=== PATIENT | female | born 1965 | race Caucasian/White ===

== ENCOUNTER → 2020-06-12 11:13 | Outpatient (BNVA) | payer MEDICAID, SELFPAY | PROVIDERS: Family Provider Nurse Practitioner Family; Visit Provider Family Medicine | DX: I10 Essential (primary) hypertension (principal); E78.5 Hyperlipidemia, unspecified; E55.9 Vitamin D deficiency, unspecified; F32.9 Major depressive disorder, single episode, unspecified; F41.9 Anxiety disorder, unspecified; F41.1 Generalized anxiety disorder; J01.00 Acute maxillary sinusitis, unspecified; H66.91 Otitis media, unspecified, right ear; E78.2 Mixed hyperlipidemia | CPT/HCPCS: 80053; 80061; 82306; 85025 ==

== ENCOUNTER → 2020-10-19 09:13 | Outpatient (BNVA) | payer MEDICAID, SELFPAY | PROVIDERS: Family Provider Nurse Practitioner Family; Visit Provider Family Medicine | DX: F41.1 Generalized anxiety disorder (principal); E78.2 Mixed hyperlipidemia; I10 Essential (primary) hypertension | CPT/HCPCS: 80053; 80061; 84443; 85025 ==

== ENCOUNTER → 2020-12-31 13:43 | Outpatient (BNVA) | payer MEDICAID, SELFPAY | PROVIDERS: Family Provider Nurse Practitioner Family | DX: M25.562 Pain in left knee (principal); S83.90XA Sprain of unspecified site of unspecified knee, initial encounter | CPT/HCPCS: 73562 ==

== ENCOUNTER → 2021-04-14 15:47 | Outpatient (BNVA) | payer MEDICAID, SELFPAY | PROVIDERS: Family Provider Nurse Practitioner Family; PCP Family Medicine; Visit Provider Family Medicine | DX: F41.1 Generalized anxiety disorder (principal); E55.9 Vitamin D deficiency, unspecified; E78.2 Mixed hyperlipidemia; I10 Essential (primary) hypertension | CPT/HCPCS: 80053; 80061; 82306; 84443; 85025 ==

== ENCOUNTER → 2021-09-07 14:44 | Outpatient (BNVA) | payer MEDICAID, SELFPAY | PROVIDERS: Family Provider Nurse Practitioner Family; PCP Family Medicine; Visit Provider Family Medicine | DX: F41.1 Generalized anxiety disorder (principal); I10 Essential (primary) hypertension; F32.9 Major depressive disorder, single episode, unspecified; E55.9 Vitamin D deficiency, unspecified | CPT/HCPCS: 80053; 80061; 84443; 85025 ==

== ENCOUNTER → 2021-11-29 09:39 | Outpatient (BNVA) | payer MEDICAID, SELFPAY | PROVIDERS: Family Provider Nurse Practitioner Family; PCP Family Medicine; Visit Provider Nurse Practitioner Family | DX: Z20.822 Contact with and (suspected) exposure to COVID-19 (principal) | CPT/HCPCS: 87635 ==

== ENCOUNTER → 2022-08-10 15:00 | Outpatient (BNVA) | payer MEDICAID, SELFPAY | PROVIDERS: Family Provider Nurse Practitioner Family; PCP Family Medicine; Visit Provider Family Medicine | DX: F41.1 Generalized anxiety disorder (principal); F41.9 Anxiety disorder, unspecified; F32.9 Major depressive disorder, single episode, unspecified; E55.9 Vitamin D deficiency, unspecified; E78.2 Mixed hyperlipidemia; I10 Essential (primary) hypertension | CPT/HCPCS: 80053; 80061; 82306; 84443; 85025 ==

== ENCOUNTER → 2022-12-20 09:58 | Outpatient (BNVA) | payer MEDICAID, SELFPAY | PROVIDERS: Family Provider Nurse Practitioner Family; PCP Family Medicine; Visit Provider Family Medicine | DX: E55.9 Vitamin D deficiency, unspecified (principal); E78.2 Mixed hyperlipidemia; F32.9 Major depressive disorder, single episode, unspecified; F41.9 Anxiety disorder, unspecified; I10 Essential (primary) hypertension | CPT/HCPCS: 80053; 80061; 82306; 84443; 85025 ==

== ENCOUNTER → 2023-01-16 14:39 | Outpatient (BNVA) | payer MEDICAID, SELFPAY | PROVIDERS: Family Provider Nurse Practitioner Family; PCP Family Medicine; Visit Provider Nurse Practitioner Family | DX: J02.9 Acute pharyngitis, unspecified (principal) | CPT/HCPCS: 87071; 87880 ==

== ENCOUNTER → 2023-06-14 13:40 | Outpatient (BNVA) | payer MEDICAID, SELFPAY | PROVIDERS: Family Provider Nurse Practitioner Family; PCP Family Medicine; Visit Provider Family Medicine | DX: E78.5 Hyperlipidemia, unspecified (principal); F41.9 Anxiety disorder, unspecified; F32.9 Major depressive disorder, single episode, unspecified; E55.9 Vitamin D deficiency, unspecified; I10 Essential (primary) hypertension | CPT/HCPCS: 80053; 80061; 82306; 84443 ==

== ENCOUNTER → 2024-02-22 10:46 | Outpatient (BNVA) | payer MEDICAID, SELFPAY | PROVIDERS: Family Provider Nurse Practitioner Family; PCP Family Medicine; Visit Provider Family Medicine | DX: M25.561 Pain in right knee (principal) | CPT/HCPCS: 73562 ==

== ENCOUNTER → 2024-03-20 16:59 | Outpatient (BNVA) | payer MEDICAID, SELFPAY | PROVIDERS: Family Provider Nurse Practitioner Family; PCP Family Medicine; Visit Provider Family Medicine | DX: M25.561 Pain in right knee (principal); I10 Essential (primary) hypertension; E78.2 Mixed hyperlipidemia; Z79.899 Other long term (current) drug therapy | CPT/HCPCS: 80053; 80061; 83721; 84443; 85025 ==

== ENCOUNTER → 2024-07-09 11:38 | Outpatient (BNVA) | payer MEDICAID, SELFPAY | PROVIDERS: Family Provider Nurse Practitioner Family; PCP Family Medicine; Visit Provider Family Medicine | DX: I10 Essential (primary) hypertension (principal); E78.2 Mixed hyperlipidemia; E55.9 Vitamin D deficiency, unspecified | CPT/HCPCS: 80053; 80061; 82306; 83721; 84443; 85025 ==

== ENCOUNTER → 2025-03-06 08:44 | Outpatient (BNVA) | payer MEDICAID, SELFPAY | PROVIDERS: Family Provider Nurse Practitioner Family; PCP Nurse Practitioner Family; Visit Provider Nurse Practitioner Family | DX: R39.9 Unspecified symptoms and signs involving the genitourinary system (principal); N39.0 Urinary tract infection, site not specified | CPT/HCPCS: 81000; 87077; 87086; 87184 ==

== ENCOUNTER → 2025-07-11 09:28 | Outpatient (BNVA) | payer MEDICAID, SELFPAY | PROVIDERS: Family Provider Nurse Practitioner Family; PCP Nurse Practitioner Family; Visit Provider Nurse Practitioner Family | DX: M19.011 Primary osteoarthritis, right shoulder (principal) | CPT/HCPCS: 73030 ==

== ENCOUNTER → 2025-08-25 13:43 | Outpatient (BNVA) | payer MEDICAID, SELFPAY | PROVIDERS: PCP Family Medicine; Referring Provider Nurse Practitioner Family; Visit Provider Nurse Practitioner | DX: M19.011 Primary osteoarthritis, right shoulder (principal); R29.898 Other symptoms and signs involving the musculoskeletal system | CPT/HCPCS: 73030 ==

== ENCOUNTER 2025-09-17 09:40 | Outpatient (CLI) | payer MEDICAID, SELFPAY ==
--- NOTE | 2025-09-17 09:30 | MR_ITS ---
WS: [id number] MRI RIGHT SHOULDER NONCONTRAST TECHNIQUE: Sagittal T2, coronal T1, T2 and proton density imaging. Axial gradient PDE imaging. CLINICAL INFORMATION: Acute right shoulder pain after injury COMPARISON: None. FINDINGS: Advanced arthritis AC joint with subacromial spurring. Fluid and edema at the AC joint. Subacromial subdeltoid fluid. Impingement on the underlying supraspinatus and infraspinatus. Tendinopathy supraspinatus and infraspinatus. High-grade full-thickness tear distal supraspinatus distally with tendon retraction measuring approximately 1 cm. Tiny intrasubstance tear in the infraspinatus. Normal teres minor. Diminutive biceps tendon or biceps tendon remnant subluxed along the bicipital groove. Tendinopathy intra-articular biceps tendon. Advanced degenerative narrowing of the glenohumeral articulation. MR/MR shoulder RT wo con* [id number] IMPRESSION: 1. Advanced degenerative arthritis at the AC joint with fluid and edema. Narro wing of the subacromial space. 2. High-grade tear of the distal supraspinatus with 1.0 cm of tendon retractio n distally. 3. Tendinopathy supraspinatus and infraspinatus. 4. Tiny intrasubstance tear distal infraspinatus. 5. Diminutive biceps tendon likely due to prior tear with subluxation along th e medial bicipital groove. 6. Diffuse tendinopathy intra-articular biceps tendon.
== END 2025-09-17 09:41 | disposition home or self-care (01) ==
LOC: RAD 09:42
PROVIDERS: PCP Family Medicine; Visit Provider Nurse Practitioner
DX: M25.511 Pain in right shoulder (principal); R29.898 Other symptoms and signs involving the musculoskeletal system; M19.011 Primary osteoarthritis, right shoulder; S46.011D Strain of muscle(s) and tendon(s) of the rotator cuff of right shoulder, subsequent encounter; S46.211D Strain of muscle, fascia and tendon of other parts of biceps, right arm, subsequent encounter; X58.XXXD Exposure to other specified factors, subsequent encounter; M75.81 Other shoulder lesions, right shoulder; M75.21 Bicipital tendinitis, right shoulder
CPT/HCPCS: 73221

== ENCOUNTER → 2025-09-29 11:10 | Outpatient (BNVA) | payer MEDICAID, SELFPAY | PROVIDERS: PCP Family Medicine; Visit Provider Nurse Practitioner | DX: Z01.818 Encounter for other preprocedural examination (principal) | CPT/HCPCS: 36415; 80053; 81001; 85025 ==

== ENCOUNTER 2025-10-21 11:53 | Day surgery (SDC) | payer MEDICAID, SELFPAY ==
[2025-10-21] VITALS (10 sets, daily range): BP systolic 146–176; BP diastolic 50–108; PULSE 80–90; RESP 12–21; TEMP 36.2–36.4; O2SAT 92–97; BMI 33.9
--- NOTE | 2025-10-21 12:41 | ANES.PREANE2 ---
Pre-Anesthetic Assessment Height/Weight: Height 5 ft 5 in Weight 204 lb Temp Pulse Resp BP Pulse Ox O2 Del Method 97.6 F 80 17 176/108 97 Room Air 10/21/25 12:31 10/21/25 12:31 10/21/25 12:31 10/21/25 12:31 10/21/25 12:31 10/21/25 12:31 Preop Diagnosis: Rotator cuff tear Operation Date: 10/21/25 13:55 Proposed Procedures p Rotator Cuff Repair - Open(Right) - Shwetha Bowser MD s Acromioplasty(Right) - Shwetha Bowser MD s Distal Clavicle Resection(Right) - Shwetha Bowser MD Was Beta Jose taken within 24 hours: N/A Was Clonidine taken within 24 hours: N/A Last intake: Intake Last Liquid Date 10/21/25 Last Liquid Time 09:30 Last Solid Date 10/20/25 Last Solid Time 18:30 Social Tobacco and No alcohol Exam alert, oriented x 3 and regular rate & rhythm Airway Submandibular: within normal limits Cervical ROM: within normal limits Mallampati: Class III Dentition: full Anesthetic Plan ASA status: 3 Anesthesia: General and Regional (specify below) Other: No prior issues with anesthesia NPO since yesterday evening History of hypertension on hydrochlorothiazide preop BP 176/108 Current smoker Labs reviewed 09/29/2025 acceptable for procedure Plan for general anesthesia with preoperative block Medications/Allergies Home Medications ?Medication ?Instructions ?Recorded ?Confirmed ?Last Taken ?Type alprazolam 1 mg tablet 1 mg PO BID #60 tabs 07/31/24 10/20/25 10/20/25 08:00 Rx cholecalciferol (vitamin D3) 1,250 1,250 mcg PO .WEEKLY #4 caps 07/31/24 10/20/25 10/17/25 17:00 Rx mcg (50,000 unit) capsule lidocaine 5 % topical patch 1 patch topical BID PRN pain #30 ea 08/19/25 10/21/25 10/20/25 Rx escitalopram oxalate 20 mg tablet 20 mg PO DAILY 10/20/25 10/21/25 10/20/25 History hydrochlorothiazide 25 mg tablet 25 mg PO DAILY 10/20/25 10/21/25 10/21/25 History ibuprofen 800 mg tablet 800 mg PO DAILY 10/20/25 10/21/25 10/13/25 20:00 History potassium chloride 10 mEq 10 meq PO DAILY 10/20/25 10/21/25 10/20/25 History capsule,extended release Allergies Allergy/AdvReac Type Severity Reaction Status Date / Time No Known Allergies Allergy Verified 10/21/25 12:30 [facility] Anesthesia Medical History (Updated 10/08/25 @ 16:19 by BETO Monahan) Tear of right supraspinatus tendon Tendinopathy of right rotator cuff Primary osteoarthritis of right shoulder Weakness of right shoulder Acute pain of right shoulder HANNAH (generalized anxiety disorder) Hyperlipidemia Essential hypertension Environmental allergies Arthritis Fibromyalgia Surgical History H/O: hysterectomy History of cholecystectomy H/O tubal ligation Family History Other CAD (coronary artery disease) Social History Smoking and tobacco/nicotine status: current every day tobacco/nicotine user cigarettes Packs smoked per day: 1 Alcohol intake: never Substance/Drug Use: never Household members: family Housing: House Marital status: Number of children: 8 Number of grandchildren: 23 Highest education level completed: GED or Equivalent service: No Current occupational status: employed Pets and animals: Yes Current gender identity: Female and Trans [id number]
[2025-10-21] MEDS: acetaminophen 1,000 MG/100 ML PIGGYBACK 400 MG IV (12:48)
--- NOTE | 2025-10-21 13:12 | ANES.PROC ---
Anesthesia Procedures Procedure/Date: 10/21/25 Right interscalene peripheral nerve block for postoperative pain control Nerve Block ^: Nerve Block 1: Main Anesthesia: other (100 mcg fentanyl and 2 mg Versed) Time Out Performed: Yes Consent: requested by attending/covering physician and from patient Laterality: Right Nerve block location: interscalene Anesthesia monitors applied: pulse oximetry, EKG, BP cuff and oxygen Nerve block position: supine Anesthetic Used: ropivicaine 0.5% Amount of anesthesia used (mL): 30 Ultrasound used to: recognize landmarks Nerve Stimulator Used?: Yes Interscalene/Femoral BLK: other needle (pjunk 4inch) Injection: neg aspiration of heme Patient Tolerated Procedure: well Complications: none Additional Comments: Decadron 4 mg added to block
--- NOTE | 2025-10-21 13:17 | SUR.PREOP ---
Tiem out was completed at bedside in OPS, block was administered using 30ml 0.5% ropivicaine
--- NOTE | 2025-10-21 14:32 | W.PM.OPSUD ---
Surgery/Procedure H&P Update DATE OF PROCEDURE: October 21, 2025 DATE H&P PERFORMED: 09/29/25 H&P UPDATE INFORMATION: I have reviewed H&P completed within last 30 days, I have examined patient prior to procedure, No changes to prior documentation, H&P is in [facility] EMR on date indicated and Risks and benefits of the procedure reviewed PREOP DIAGNOSIS: Right rotator cuff tear PLANNED PROCEDURE: Operation Date: 10/21/25 13:55 Proposed Procedures p Rotator Cuff Repair - Open(Right) - Shwetha Bowser MD s Acromioplasty(Right) - Shwetha Bowser MD s Distal Clavicle Resection(Right) - Shwetha Bowser MD Related Problem List Diagnoses 1. Impingement of right shoulder: 2. Tear of right supraspinatus tendon: Qualifiers: Laterality: right 3. Tendinopathy of right rotator cuff:
[2025-10-21] MEDS: ceFAZolin 2,000 mg SDV 2000 MG IVP (14:37)
[2025-10-21] MEDS: ceFAZolin 1,000 mg SDV 1000 MG IRRIGATION (15:26)
--- NOTE | 2025-10-21 16:37 | PM.OP ---
Operative Report Date of procedure: October 21, 2025 Surgeon: Shwetha Bowser MD Procedure: eft shoulder high-grade near full-thickness tear involving the supraspinatus, acromioclavicular joint osteoarthritis, impingement, and bursitis Post-op diagnosis: Left shoulder high-grade near full-thickness tear involving the supraspinatus, acromioclavicular joint osteoarthritis, impingement, and bursitis Post-op findings: Left shoulder complete tear of the supraspinatus with biceps tendon involvement, significant acromioclavicular joint osteoarthritis, and severe impingement with bursitis Procedure done: Left shoulder rotator cuff repair with biceps tendon tenodesis, acromioplasty, distal clavicle resection, and bursectomy Implants: None Specimens removed/disposition: Distal clavicle, disposed of Pathology: None Surgeon: Shwetha Bowser MD Environmental Technology Professor: Debi Mark, nurse practitioner, whose services were required for positioning, exposure, retraction, repair of the rotator cuff, and wound closure. Anesthesia: General (Intubated, ASA 3) and Nerve Block (Interscalene as supplement to general anesthesia) Estimated blood loss (mL): 5 IV fluids (mL): 800 Urine output (mL): 0 (No Blankenship) Complications: None Findings: Complete rotator cuff tear involving the supraspinatus and biceps tendon with subacromial severe impingement and acromioclavicular joint osteoarthritis Condition: stable Disposition: PACU (Then return to same-day surgery for discharge to home) Brief History: This 62-year-old woman presented to the office complaining of left shoulder pain. She had an MRI of the shoulder which demonstrated high-grade full-thickness tearing of the supraspinatus tendon with retraction as well as chronic thinning of the infraspinatus and a tiny insertion site tear. There was also noted to be acromioclavicular joint osteoarthritis and tendinopathy. After discussion in the office, the patient was scheduled for the above procedure. Risks and complications were discussed with her. Consents were signed and questions were answered. On the day of surgery, patient was given the opportunity to ask further questions. Procedure: The patient was brought to the operating theater and underwent general intubated anesthesia, ASA 3, with preoperative supplemental interscalene block, which was well-tolerated. The patient was placed in a beachchair position and subsequently the left upper extremity was prepped and draped in the usual fashion utilizing DuraPrep. The arm was draped free. A surgical pause was performed prior to commencement of the surgical procedure. At the time of the surgical pause, we confirmed the site and side of surgery as well as administration of appropriate preoperative antibiotics, Ancef 2 g. MRI was also reviewed at that time. Following the surgical pause, an incision was made at approximately the level of the acromioclavicular joint extending across the anterolateral corner of the acromion and distally as necessary. Care was taken to avoid injury to the axillary nerve by limiting the distal extent of the incision. Dissection continued through skin and soft tissues using a scalpel. Hemostasis was obtained using electrocautery. Soft tissues were elevated off the acromion and the acromioclavicular joint. The acromioclavicular joint was exposed as well as the anterior lateral border of the acromion. An acromioplasty was then accomplished using a combination of a saw and a power rasp. With this, we were able to remove compression caused by the acromion. This was noted to be very significant prior to the acromioplasty. Impingement was improved following acromioplasty. Bursectomy was accomplished as this was quite thickened and erythematous. Following resection of the bursa, the rotator cuff was visually inspected as well as palpated. There was noted to be a complete rotator cuff tear of the supraspinatus tendon. There was thinning of the infraspinatus as noted on the MRI. Biceps tendon was also noted to have some tendinitis and irregularity. This area was evaluated and trimmed in preparation for repair. The remainder of the rotator cuff was evaluated and there was no other evidence of rotator cuff tear. After the edges were freshened, we were able to primarily repair the rotator cuff tear with multiple Ethibond sutures. These also incorporated the biceps tendon to perform a biceps tenodesis. Once this repair had been made, attention was directed to the distal clavicle. A saw was then used to resect the distal clavicle without difficulty. The undersurface of the clavicle was palpated and was slightly further debrided. A power rasp was used to further smooth the area. When this was felt to be adequately resected, the wound was irrigated. Following excision of the distal clavicle and repair as noted above, the shoulder was placed through range of motion. There was no further evidence of significant impingement or other evidence of rotator cuff tear. The wound was copiously irrigated and attention was directed to closure. Closure was accomplished with 0 Vicryl in the capsular tissues overlying the acromioclavicular joint area as well as over the acromion and down into the deltoid muscle. 2-0 Monocryl was used to close the subcutaneous tissues followed by 3-0 Monocryl subcuticular closure. This was followed by Dermabond, Steri-Strips, and OpSite. An ABD was placed in the axilla. The patient was placed in a slingshot style sling and was returned to the recovery room in satisfactory condition. The patient will be discharged to home to follow-up in office as scheduled. There were no complications and no specimens. Related Problem List Diagnoses 1. Tear of right supraspinatus tendon: 2. Impingement of right shoulder: 3. Primary osteoarthritis of right shoulder:
--- NOTE | 2025-10-21 16:58 | ANE.PACU2 ---
Inpatient post-anesthesia follow up: Airway intact: Yes Vital signs: Temperature 97.1 F Pulse Rate 85 Respiratory Rate 21 Blood Pressure 149/94 Pulse Oximetry 92 Oxygen Delivery Me thod Room Air Oxygen Flow Rate Fraction of Inspir ed Oxygen Hydration adequate: Yes Nausea and vomiting: No Pain level: 1 Mental status: Baseline
--- NOTE | 2025-10-21 17:10 | PM.OP ---
Operative Report Date of procedure: October 21, 2025 Surgeon: Shwetha Bowser MD Related Problem List Diagnoses 1. Tear of right supraspinatus tendon: 2. Impingement of right shoulder: 3. Primary osteoarthritis of right shoulder:
--- NOTE | 2025-10-21 17:14 | P.OP_ITS ---
Operative Report Date of procedure: October 21, 2025 Pre-op diagnosis: Right shoulder supraspinatus tear with approximately 1 cm of retraction, acromioclavicular joint osteoarthritis, impingement, and slight degenerative osteoarthritis of the glenohumeral joint. Post-op diagnosis: Right shoulder supraspinatus tear with approximately 1 cm of retraction, acromioclavicular joint osteoarthritis, impingement, and slight degenerative os teoarthritis of the glenohumeral joint. Post-op findings: Complete rotator cuff tear of the supraspinatus with approximately 1.5 to 2 cm of retraction, acromioclavicular osteoarthritis, impingement Procedure done: Right shoulder rotator cuff repair with primary repair and repair with Biosteon anchor, distal clavicle resection, acromioplasty, and bursectomy Implants: Biosteon Intraline 5.5 mm suture anchor Specimens removed/disposition: Bursa and distal clavicle disposed of Pathology: None Surgeon: Shwetha Bowser MD Burning Supervisor: Debi Mark, nurse practitioner, whose services were required for positioning, exposure, retraction, repair of the rotator cuff, and wound closure Anesthesia: General (Intubated, ASA 3) Estimated blood loss (mL): 90 IV fluids (mL): 1,000 Urine output (mL): 0 (No Blankenship) Complications: None Findings: Rotator cuff tear involving insertion of the supraspinatus tendon with approximately 2 cm of retraction, significant impingement, acromioclavicular joint osteoarthritis, and bursitis Condition: stable Disposition: PACU (Then return to same-day surgery for discharge to home) Brief History: This 60-year-old woman presented to the clinic with complaints of severe right shoulder pain. She had a remote injury, and MRI was ordered for evaluation. MRI demonstrated advanced degenerative changes of the acromioclavicular joint as well as narrowing of the subacromial space and a high-grade tear of the distal supraspinatus with tendon retraction. After discussion in the office, the patient wished to proceed with rotator cuff repair, acromioplasty, and distal clavicle resection. This was discussed with her. Consents were signed and questions were answered. Patient was seen preoperatively in the preoperative holding area as well for further discussion of surgical intervention. She had the opportunity to ask questions at that time. Procedure: The patient was brought to the operating theater and underwent general intubated anesthesia, ASA 3, with preoperative supplemental interscalene block, which was well-tolerated. The patient was placed in a beachchair position and subsequently the right upper extremity was prepped and draped in the usual fashion utilizing DuraPrep. The arm was draped free. A surgical pause was performed prior to commencement of the surgical procedure. At the time of the surgical pause, we confirmed the site and side of surgery as well as administration of appropriate preoperative antibiotics, Ancef 2 g. MRI was also reviewed at that time. Following the surgical pause, an incision was made at approximately the level of the acromioclavicular joint extending across the anterolateral corner of the acromion and distally as necessary. Care was taken to avoid injury to the axillary nerve by limiting the distal extent of the incision. Dissection continued through skin and soft tissues using a scalpel. Hemostasis was obtained using electrocautery. Soft tissues were elevated off the acromion and the acromioclavicular joint. The acromioclavicular joint was exposed as well as the anterior lateral border of the acromion. A saw was then used to resect the distal clavicle without difficulty. The undersurface of the clavicle was palpated and was slightly further debrided. A power rasp was used to further smooth the area. When this was felt to be adequately resected, the wound was irrigated. Following excision of the distal clavicle attention was directed to the acromion. An acromioplasty was then accomplished using a combination of a saw and a power rasp. With this, we were able to remove compression caused by the acromion. This was noted to be very significant prior to the acromioplasty. Impingement was improved following acromioplasty. Bursectomy was accomplished as this was quite thickened and erythematous. Following resection of the bursa, the rotator cuff was visually inspected as well as palpated. There was noted to be a complete rotator cuff tear of the supraspinatus tendon. The remainder of the rotator cuff was evaluated, and there was no other evidence of rotator cuff tear. After the edges were freshened, we were able to primarily repair the rotator cuff tear with multiple Ethibond sutures. We then utilized a suture anchor to repair the tendon to the insertion point on the greater tuberosity. Once this repair had been made, the shoulder was placed through range of motion. There was no further evidence of significant impingement or other evidence of rotator cuff tear. The wound was copiously irrigated and attention was directed to closure. Closure was accomplished with 0 Vicryl in the capsular tissues overlying the acromioclavicular joint area as well as over the acromion and down into the deltoid muscle. 2-0 Monocryl was used to close the subcutaneous tissues followed by 3-0 Monocryl subcuticular closure. This was followed by Dermabond, Steri- Strips, and OpSite. An ABD was placed in the axilla. The patient was placed in a slingshot style sling and was returned to the recovery room in satisfactory condition. The patient will be discharged to home to follow-up in office as scheduled. There were no complications and no specimens. Related Problem List Diagnoses 1. Tear of right supraspinatus tendon: 2. Impingement of right shoulder: 3. Primary osteoarthritis of right shoulder:
== END 2025-10-21 17:35 | disposition home or self-care (01) ==
PROVIDERS: PCP Family Medicine; Visit Provider Specialist
PROC: (CPT 23412; principal; 2025-10-21 13:55)
PROC: (CPT 23130; 2025-10-21 13:55)
PROC: (CPT 23120; 2025-10-21 13:55)
DX: M75.121 Complete rotator cuff tear or rupture of right shoulder, not specified as traumatic (principal); M19.011 Primary osteoarthritis, right shoulder; M75.41 Impingement syndrome of right shoulder; I10 Essential (primary) hypertension; F17.210 Nicotine dependence, cigarettes, uncomplicated; E78.5 Hyperlipidemia, unspecified; F41.9 Anxiety disorder, unspecified; M79.7 Fibromyalgia
CPT/HCPCS: 23412; 23120; 23130; 64415; C1713; J0131; J0330; J0690; J2371; J2704; J3490; J7030; J9999